=== PATIENT | female | born 1950 | race Caucasian/White ===

== ENCOUNTER → 2016-12-08 | Outpatient (CLI) | payer BC ==
[~2016-12-08] MED LIST: FLEXERIL 1010 MG/TAB PO; MOTRIN 600600 MG/TAB PO; PRAVACHOL 40MG40 MG PO; VALTREX1 GM PO; VITAMIN D50000 I2 PO
== END ==
LOC: COL.RAD 10:20
DX: R10.11 Right upper quadrant pain (principal); R79.89 Other specified abnormal findings of blood chemistry

== ENCOUNTER 2016-12-10 11:24 | Day surgery (SDC) | payer BC ==
[~2016-12-10] VITALS: Ht 152.4 cm; Wt 53.5 kg
[2016-12-10] VITALS (8 sets, daily range): BP systolic 93–123; BP diastolic 48–58; PULSE 71–86; TEMP 97.6–98.1
[~2016-12-10 11:24] MED LIST changes: -PRAVACHOL 40MG40 MG PO
[2016-12-10 11:55] LABS: BASO % 0.3 % (0.0-2.0); EOS # 0.1 (0.0-0.7); EOS % 0.8 % (0-4.0); GRAN # 11.8 (1.4-6.5); GRAN % 78.9 % (42.2-75.2); HEMATOCRIT 40.3 % (37.0-47.0); HEMOGLOBIN 13.4 g/dl (12.5-16.0); LYMPH # 2.4 (1.2-3.4); LYMPH % 16.2 % (20.0-51.0); MEAN CELL VOLUME 91 fl (80.0-100.0); MEAN CORPUSCULAR HEMOGLOBIN 30 pg (27.0-31.0); MEAN CORPUSCULAR HGB CONC 33 g/dl (33.0-37.0); MEAN PLATELET VOLUME 9.7 fl (7.4-10.4); MONO # 0.5 (0.1-0.6); MONO % 3.3 % (1.7-9.3); PLATELET COUNT 316 K/mm3 (130-400); RED BLOOD COUNT 4.42 M/mm3 (4.10-5.30); REDCELL DISTRIBUTION WIDTH-CV 12.9 % (11.5-14.5)
[2016-12-10] MEDS ORDERED: PRAVACHOL 40MG40 MG PO (12:07)
[2016-12-10 12:10] LABS: ADJUSTED CALCIUM 9.3 mg/dL (8.4-10.2); ALBUMIN 4.7 gm/dL (3.5-5.0); BILIRUBIN,TOTAL 0.8 mg/dL (0.0-1.0); C-REACTIVE PROTEIN 2.1 mg/dL (0.0-0.9); CALCIUM 9.9 mg/dL (8.4-10.2); CREATININE, serum 0.6 mg/dL (0.52-1.25); POTASSIUM 3.8 mmol/L (3.4-5.0); TOTAL PROTEIN 8.6 gm/dL (6.4-8.2)
[2016-12-11 02:47] VITALS: BP 110/55; PULSE 77; TEMP 98.2
[2016-12-11 06:34] VITALS: BP 99/51; PULSE 77; TEMP 98.3
[2016-12-11 09:23] VITALS: BP 102/53; PULSE 79; TEMP 98.9
== END 2016-12-11 10:00 | disposition home or self-care (01) ==
LOC: COL.ER 11:24 → SURG 13:20 → SDCO 13:20
PROVIDERS: Physician Assistant
DX: K35.80 Unspecified acute appendicitis (principal); M79.7 Fibromyalgia; E78.00 Pure hypercholesterolemia, unspecified
CPT/HCPCS: OP; J0690; J0696; J1170; J1885; J2250; J2405; J2704; J2710; J2765; J3010; J7030; Q9967

== ENCOUNTER → 2017-01-20 | Outpatient (CLI) | payer BC ==
[~2017-01-20] MED LIST changes: +PRAVACHOL 40MG40 MG PO
== END ==
LOC: MC.RAD 14:03
DX: Z12.31 Encounter for screening mammogram for malignant neoplasm of breast (principal)

== ENCOUNTER 2017-12-31 06:43 | Day surgery (SDC) | payer MEDICARE, BC ==
[~2017-12-31] VITALS: Ht 152.4 cm; Wt 54.5 kg
[~2017-12-31 06:43] MED LIST changes: +MASON NATURAL2000 IU PO; -VITAMIN D50000 I2 PO
[2017-12-31] MEDS ORDERED: ZANTAC 150MG T150 MG PO (07:02)
[2017-12-31] MEDS ORDERED: TYLENOL 500MG500 MG PO (07:04)
[2017-12-31] MEDS ORDERED: FOLIC ACID 40400 MCG PO (07:07)
[2017-12-31] MEDS ORDERED: B COMPLEX #11 TAB PO (07:07)
[2017-12-31] MEDS ORDERED: THE MEDICINE S200 M2 PO (07:08)
[2017-12-31] MEDS ORDERED: LUTEIN 15 MG-0.1 SGL PO (07:08)
[2017-12-31] MEDS ORDERED: CALTRATE-600 W600 MG PO (07:09)
[2017-12-31] MEDS ORDERED: TURMERIC500 MG PO (07:09)
[2017-12-31 07:22] VITALS: BP 130/79; PULSE 70; TEMP 98.8
[2017-12-31 08:25] VITALS: BP 130/73; PULSE 77; TEMP 98.1
[2017-12-31 08:30] VITALS: BP 125/78; PULSE 76
[2017-12-31 08:45] VITALS: BP 127/77; PULSE 76
[2017-12-31 09:00] VITALS: BP 130/81; PULSE 73
== END 2017-12-31 09:15 | disposition home or self-care (01) ==
LOC: SDCO 06:43
DX: K22.2 Esophageal obstruction (principal); K21.0 Gastro-esophageal reflux disease with esophagitis; E78.00 Pure hypercholesterolemia, unspecified; K58.9 Irritable bowel syndrome, unspecified; Z90.710 Acquired absence of both cervix and uterus; Z88.1 Allergy status to other antibiotic agents; Z88.8 Allergy status to other drugs, medicaments and biological substances
CPT/HCPCS: C1726; J2250; J2405; J3010; J7030

== ENCOUNTER → 2018-01-21 | Outpatient (CLI) | payer MEDICARE, BC ==
[~2018-01-21] MED LIST changes: +B COMPLEX #11 TAB PO; +CALTRATE-600 W600 MG PO; +FOLIC ACID 40400 MCG PO; +LUTEIN 15 MG-0.1 SGL PO; +THE MEDICINE S200 M2 PO; +TURMERIC500 MG PO; +TYLENOL 500MG500 MG PO; +ZANTAC 150MG T150 MG PO
== END ==
LOC: MC.RAD 09:00
DX: Z12.31 Encounter for screening mammogram for malignant neoplasm of breast (principal)

== ENCOUNTER → 2019-02-13 | Outpatient (CLI) | payer MEDICARE, BC | LOC: MC.RAD 10:25 | DX: Z12.31 Encounter for screening mammogram for malignant neoplasm of breast (principal) ==

== ENCOUNTER → 2021-03-04 | Outpatient (CLI) | payer MEDICARE, BC ==
[~2021-03-04] MED LIST changes: +ASPIRIN E.C. 8181 MG PO; +CBD OIL SL; +FLOVENT DI50 MCG/Act; +MELATONIN5 M1 PO; +PROBIOTIC FORMU1 CAP PO; +PROCTOZONE-HC2.5% RC; +PROTONIX 40MG T40 MG PO
== END ==
LOC: MC.RAD 10:00
DX: Z12.31 Encounter for screening mammogram for malignant neoplasm of breast (principal)

== ENCOUNTER → 2021-04-16 | Outpatient (CLI) | payer MEDICARE, BC ==
[~2021-04-16] VITALS: Ht 152.4 cm; Wt 56.0 kg
[2021-04-16 15:32] VITALS: BP 124/59; PULSE 69; TEMP 98.8
== END ==
LOC: EUO 14:51
DX: M81.0 Age-related osteoporosis without current pathological fracture (principal)
CPT/HCPCS: J3489

== ENCOUNTER → 2022-03-20 | Outpatient (CLI) | payer MEDICARE, BC | LOC: MC.RAD 08:56 | DX: Z12.31 Encounter for screening mammogram for malignant neoplasm of breast (principal); N64.89 Other specified disorders of breast ==

== ENCOUNTER → 2022-03-23 | Outpatient (CLI) | payer MEDICARE, BC | LOC: MC.RAD 10:00 | DX: R92.8 Other abnormal and inconclusive findings on diagnostic imaging of breast (principal) ==

== ENCOUNTER → 2022-03-31 | Outpatient (CLI) | payer MEDICARE, BC | LOC: MC.RAD 07:53 | DX: N63.20 Unspecified lump in the left breast, unspecified quadrant (principal) ==